=== PATIENT | female | born 1945 | race Caucasian/White ===

== ENCOUNTER 2017-12-28 07:42 | Inpatient (IN) | payer MEDICARE, MEDICAID ==
[2017-12-23 12:43] LABS: BASOPHILS % (AUTO) 0.7 % (0-1); EOSINOPHILS # (AUTO) 0.3 X10'3 (0-0.9); EOSINOPHILS % (AUTO) 4.3 % (0-6); LYMPHOCYTES # (AUTO) 1.9 X10'3 (1.1-4.8); LYMPHOCYTES % (AUTO) 26.9 % (21-51); MEAN CORPUSCULAR HEMOGLOBIN 29.4 PG (27.0-31.0); MEAN CORPUSCULAR HGB CONC 33.2 % (33.0-36.5); MEAN CORPUSCULAR VOLUME 88.4 FL (78-98); MEAN PLATELET VOLUME 7.5 FL (7.4-10.4); MONOCYTES # (AUTO) 0.6 X10'3 (0-0.9); MONOCYTES % (AUTO) 8.5 % (2-12); NEUTROPHILS # (AUTO) 4.3 X10'3 (1.8-7.7); NEUTROPHILS % (AUTO) 59.6 % (42-75); PRE OP HEMATOCRIT 34.1 % (35.0-45.0); PRE OP HEMOGLOBIN 11.3 g/dL (12.0-16.0); PRE OP PLATELET COUNT 280 X10'3 (140-440); RED BLOOD COUNT 3.85 X10'6 (4.20-5.60); RED CELL DISTRIBUTION WIDTH 14.6 % (11.5-14.5)
[2017-12-23 12:52] LABS: CLARITY,URINE CLEAR (Clear); COLOR,URINE YELLOW (Yellow); GLUCOSE, URINE NEGATIVE (Neg); KETONES,URINE NEGATIVE (Neg); LEUKOCYTE ESTERASE ,URINE NEGATIVE (Neg); NITRITES, URINE NEGATIVE (Neg); OCCULT BLOOD,URINE NEGATIVE (Neg); PH,URINE 6.5 (4.8-8.0); PROTEIN,URINE NEGATIVE (Neg); UROBILINOGEN,URINE 0.2 E.U/dL (0.2-1.0)
[2017-12-23 12:53] LABS: UA COLLECTION TYPE CLN CATCH MIDSTREAM
[2017-12-23 13:13] LABS: ALBUMIN 3.5 G/DL (3.4-5.0); ALBUMIN/GLOBULIN RATIO 0.9 (1.1-1.5); ALKALINE PHOSPHATASE 75 IU/L (46-116); BLOOD UREA NITROGEN 12 MG/DL (7-18); BUN/CREATININE RATIO 12.9 (6.6-38.0); CALCIUM 8.5 MG/DL (8.5-10.1); CHLORIDE 101 MMOL/L (99-107); CREATININE 0.93 MG/DL (0.40-0.90); PRE OP ALT 29 U/L (30-65); PRE OP ANION GAP 9 (8-16); PRE OP AST 18 U/L (10-37); PRE OP BILIRUB, TOTAL 0.3 MG/DL (0.0-1.0); PRE OP GLUCOSE 99 MG/DL (70-104); PRE OP POTASSIUM 4.5 MMOL/L (3.4-5.1); PRE OP SODIUM 138 MMOL/L (135-145); TOTAL CARBON DIOXIDE 28.2 MMOL/L (24-32); TOTAL PROTEIN 7.5 G/DL (6.4-8.2); eGFR 60 ML/MIN
[2017-12-28] VITALS (20 sets, daily range): BP systolic 104–150; BP diastolic 54–98
[~2017-12-28] VITALS: Ht 152.4 cm; Wt 85.9 kg
[~2017-12-28 07:42] MED LIST: AMLO5TAB PO; BACL10TA PO; FLUT1DIS4 INH; GABA-532 PO; HYDROcodone/acetaminophen 10/325mg tab PO PRN; HYDROmorphone 1 mg/ml syringe IV PRN; LEVA15HF4 IH; LORA0.5T PO; METO-395 PO; MONT10TA21 PO; OMEP-84 PO; SIMV10TA6 PO; VENL75TA90 PO; acetaminophen 325mg tablet PO ONE; bisacodyl 10mg suppository rectal RC PRN; cefazolin/dext.iso 2gm/100 ML IV ONE; celeCOXIB 100mg capsule PO ONE; famotidine 20mg tablet PO ONE; gabapentin 300mg capsule PO ONE; magnesium hydroxide 30ml (MOM) UD suspension PO PRN; metoclopramide 5 mg/ml inj IV ONE; oxyCODONE SR 10mg (sust. release) tab -2 tabs (20mg) PO ONE; ringers solution, lacted 1,000 ML IV SCH; tranexamic acid inj. 1,000 MG in normal saline 100ml IV soln 90 ML IV ONE; vancomycin inj 1,500 MG in normal saline 300ml IV soln IV ONE
[2017-12-28] MEDS ORDERED: ringers solution, lacted 1,000 ML IV SCH (07:53)
[2017-12-28] MEDS ORDERED: meperidine/PF 25mg/ml syringe IV PRN ×3 (07:55)
[2017-12-28] MEDS ORDERED: ondansetron/PF 4mg/2ml inj IV PRN ×2 (07:55→13:57)
[2017-12-28] MEDS ORDERED: morphine 4 MG/ML inj SYRINge IV PRN ×2 (07:55)
[2017-12-28] MEDS ORDERED: proCHLORperazine 10 MG/2 ml inj IV PRN (07:55)
[2017-12-28] MEDS ORDERED: epiNEPHrine 1 mg/ml inj ONE (09:09)
[2017-12-28] MEDS ORDERED: vancomycin 1,000mg inj ONE (09:09)
[2017-12-28] MEDS ORDERED: ROPIVAcaine 0.5% (5mg/ml) 30ml vial ONE (09:09)
[2017-12-28] MEDS ORDERED: cloNIDine hcl/PF 100mcg/ml inj ONE (09:09)
[2017-12-28] MEDS ORDERED: ketorolac trometh. 30mg/ml inj. ONE (09:09)
[2017-12-28] MEDS ORDERED: MIDAZolam 1mg/ml 10ml vial ONE (10:18)
[2017-12-28] MEDS ORDERED: fentaNYL/PF 50MCG/1 ML 2ML syringe ONE (10:19)
[2017-12-28] MEDS ORDERED: BUPIVAcaine/PF 7.5mg/ml (0.75%) 10ml vial ONE (10:21)
[2017-12-28] MEDS ORDERED: albuterol 2.5 MG/3 ML nebule NEB PRN (13:55)
[2017-12-28] MEDS ORDERED: diphenhydrAMINE 25mg capsule PO PRN ×2 (13:57→21:00)
[2017-12-28] MEDS: potassium cl 20mEq in 1/2 NS 1,000 ML IV SCH ×3 (15:02→23:02)
[2017-12-28] MEDS ORDERED: acetaminophen 325mg tablet PO PRN (16:00)
[2017-12-28] MEDS ORDERED: tranexamic acid inj. 860 MG in normal saline 100ml IV soln 100 ML IV ONE (17:00)
[2017-12-28] MEDS: atorvastatin 10mg tablet PO SCH (20:17)
[2017-12-28] MEDS: pantoprazole 40mg Tablet.DR PO SCH (20:17)
[2017-12-28] MEDS: gabapentin 300mg capsule PO SCH (20:17)
[2017-12-28] MEDS: ascorbic acid 500mg tablet PO SCH (20:17)
[2017-12-28] MEDS: LORazepam 0.5 MG tablet PO SCH (20:17)
[2017-12-28] MEDS: sennosides 8.6mg tablet PO SCH (20:17)
[2017-12-28] MEDS: baclofen 10mg tablet PO SCH (20:18)
[2017-12-28] MEDS: metoprolol succinate 25mg (24-HOUR) SR. Tablet PO SCH (20:18)
[2017-12-28] MEDS: cefazolin/dext.iso 2gm/100ml 100 ML IV SCH ×2 (20:18→23:55)
[2017-12-28] MEDS: HYDROcodone/acetaminophen 10/325mg tab PO PRN ×2 (20:19→23:52)
[2017-12-29 05:00] VITALS: BP 109/61
[2017-12-29] MEDS: HYDROcodone/acetaminophen 10/325mg tab PO PRN ×5 (05:30→22:01)
[2017-12-29] MEDS: potassium cl 20mEq in 1/2 NS 1,000 ML IV SCH ×2 (07:02→23:02)
[2017-12-29 07:17] VITALS: BP 129/53
[2017-12-29] MEDS: gabapentin 300mg capsule PO SCH ×3 (07:20→20:08)
[2017-12-29] MEDS: multivitamins, therapeutics tablet PO SCH (07:20)
[2017-12-29] MEDS: montelukast 10mg tablet PO SCH (07:21)
[2017-12-29] MEDS: ascorbic acid 500mg tablet PO SCH ×2 (07:21→20:08)
[2017-12-29] MEDS: amLODIPine 5mg tablet PO SCH (07:21)
[2017-12-29 07:26] LABS: BASOPHILS % (AUTO) 0.7 % (0-1); EOSINOPHILS # (AUTO) 0.3 X10'3 (0-0.9); EOSINOPHILS % (AUTO) 4.4 % (0-6); HEMATOCRIT 29.3 % (35.0-45.0); LYMPHOCYTES # (AUTO) 1.4 X10'3 (1.1-4.8); LYMPHOCYTES % (AUTO) 23.1 % (21-51); MEAN CORPUSCULAR HEMOGLOBIN 29.8 PG (27.0-31.0); MEAN CORPUSCULAR HGB CONC 33.9 % (33.0-36.5); MEAN CORPUSCULAR VOLUME 87.9 FL (78-98); MEAN PLATELET VOLUME 7.4 FL (7.4-10.4); MONOCYTES # (AUTO) 0.5 X10'3 (0-0.9); MONOCYTES % (AUTO) 8.7 % (2-12); NEUTROPHILS # (AUTO) 3.9 X10'3 (1.8-7.7); NEUTROPHILS % (AUTO) 63.1 % (42-75); PLATELET COUNT 228 X10'3 (140-440); RED BLOOD COUNT 3.34 X10'6 (4.20-5.60); RED CELL DISTRIBUTION WIDTH 14.7 % (11.5-14.5); WHITE BLOOD COUNT 6.2 X10'3 (4.5-11.0)
[2017-12-29 07:50] LABS: ANION GAP 8 (8-16); CHLORIDE 104 MMOL/L (99-107); POTASSIUM 4.3 MMOL/L (3.5-5.1); SODIUM 137 MMOL/L (135-145); TOTAL CARBON DIOXIDE 25.1 MMOL/L (24-32)
[2017-12-29] MEDS: aspirin 325mg tablet PO SCH ×2 (08:30→09:30)
[2017-12-29 10:00] VITALS: BP 132/51
[2017-12-29] MEDS: albuterol 2.5 MG/3 ML nebule NEB SCH ×3 (11:57→19:53)
[2017-12-29] MEDS: BUDESONIDE 0.25 MG/2 ML AMPUL.NEB IH SCH ×2 (11:58→19:53)
[2017-12-29 14:00] VITALS: BP 145/79
[2017-12-29 18:00] VITALS: BP 149/32
[2017-12-29] MEDS: metoprolol succinate 25mg (24-HOUR) SR. Tablet PO SCH (20:08)
[2017-12-29] MEDS: atorvastatin 10mg tablet PO SCH (20:08)
[2017-12-29] MEDS: pantoprazole 40mg Tablet.DR PO SCH (20:09)
[2017-12-29] MEDS: LORazepam 0.5 MG tablet PO SCH (20:09)
[2017-12-29] MEDS: sennosides 8.6mg tablet PO SCH (20:09)
[2017-12-29] MEDS: baclofen 10mg tablet PO SCH (20:09)
[2017-12-29 22:00] VITALS: BP 112/51
[2017-12-30] MEDS: HYDROcodone/acetaminophen 10/325mg tab PO PRN ×6 (02:04→23:08)
[2017-12-30 06:00] VITALS: BP 110/45
[2017-12-30 06:57] LABS: BASOPHILS % (AUTO) 0.1 % (0-1); EOSINOPHILS # (AUTO) 0.3 X10'3 (0-0.9); EOSINOPHILS % (AUTO) 3.1 % (0-6); HEMATOCRIT 32.3 % (35.0-45.0); HEMOGLOBIN 10.7 g/dl (12.0-16.0); LYMPHOCYTES # (AUTO) 2.3 X10'3 (1.1-4.8); LYMPHOCYTES % (AUTO) 22.3 % (21-51); MEAN CORPUSCULAR HEMOGLOBIN 29.6 PG (27.0-31.0); MEAN CORPUSCULAR HGB CONC 33.2 % (33.0-36.5); MEAN CORPUSCULAR VOLUME 89.2 FL (78-98); MEAN PLATELET VOLUME 7.8 FL (7.4-10.4); MONOCYTES # (AUTO) 1.1 X10'3 (0-0.9); MONOCYTES % (AUTO) 10.9 % (2-12); NEUTROPHILS # (AUTO) 6.6 X10'3 (1.8-7.7); NEUTROPHILS % (AUTO) 63.6 % (42-75); PLATELET COUNT 258 X10'3 (140-440); RED BLOOD COUNT 3.62 X10'6 (4.20-5.60); RED CELL DISTRIBUTION WIDTH 15.1 % (11.5-14.5); WHITE BLOOD COUNT 10.3 X10'3 (4.5-11.0)
[2017-12-30 07:32] VITALS: BP 124/49
[2017-12-30] MEDS: montelukast 10mg tablet PO SCH (07:35)
[2017-12-30] MEDS: gabapentin 300mg capsule PO SCH ×3 (07:35→20:06)
[2017-12-30] MEDS: multivitamins, therapeutics tablet PO SCH (07:35)
[2017-12-30] MEDS: ascorbic acid 500mg tablet PO SCH ×2 (07:35→20:06)
[2017-12-30] MEDS: amLODIPine 5mg tablet PO SCH (07:35)
[2017-12-30] MEDS: aspirin 325mg tablet PO SCH (07:37)
[2017-12-30] MEDS: albuterol 2.5 MG/3 ML nebule NEB SCH ×4 (07:40→19:42)
[2017-12-30] MEDS: BUDESONIDE 0.25 MG/2 ML AMPUL.NEB IH SCH ×2 (07:45→19:42)
[2017-12-30] MEDS ORDERED: ASPI-1 PO (08:26)
[2017-12-30 10:00] VITALS: BP 118/45
[2017-12-30 18:00] VITALS: BP 165/54
[2017-12-30 20:01] VITALS: BP 157/59
[2017-12-30] MEDS: atorvastatin 10mg tablet PO SCH (20:06)
[2017-12-30] MEDS: baclofen 10mg tablet PO SCH (20:06)
[2017-12-30] MEDS: pantoprazole 40mg Tablet.DR PO SCH (20:06)
[2017-12-30] MEDS: metoprolol succinate 25mg (24-HOUR) SR. Tablet PO SCH (20:06)
[2017-12-30] MEDS: LORazepam 0.5 MG tablet PO SCH (20:06)
[2017-12-30] MEDS: sennosides 8.6mg tablet PO SCH (20:07)
[2017-12-30 22:00] VITALS: BP 163/58
[2017-12-31] MEDS: HYDROcodone/acetaminophen 10/325mg tab PO PRN ×2 (05:27→10:48)
[2017-12-31 06:00] VITALS: BP 143/50
[2017-12-31] MEDS: albuterol 2.5 MG/3 ML nebule NEB SCH ×2 (07:00→10:12)
[2017-12-31] MEDS: aspirin 325mg tablet PO SCH (07:09)
[2017-12-31] MEDS: gabapentin 300mg capsule PO SCH (07:09)
[2017-12-31] MEDS: multivitamins, therapeutics tablet PO SCH (07:09)
[2017-12-31] MEDS: ascorbic acid 500mg tablet PO SCH (07:09)
[2017-12-31] MEDS: amLODIPine 5mg tablet PO SCH (07:09)
[2017-12-31] MEDS: montelukast 10mg tablet PO SCH (07:09)
[2017-12-31] MEDS: BUDESONIDE 0.25 MG/2 ML AMPUL.NEB IH SCH (07:27)
[2017-12-31 07:35] LABS: BASOPHILS % (AUTO) 0.3 % (0-1); EOSINOPHILS # (AUTO) 0.4 X10'3 (0-0.9); HEMATOCRIT 29.2 % (35.0-45.0); HEMOGLOBIN 9.8 g/dl (12.0-16.0); LYMPHOCYTES # (AUTO) 1.3 X10'3 (1.1-4.8); LYMPHOCYTES % (AUTO) 17.7 % (21-51); MEAN CORPUSCULAR HEMOGLOBIN 29.6 PG (27.0-31.0); MEAN CORPUSCULAR HGB CONC 33.4 % (33.0-36.5); MEAN CORPUSCULAR VOLUME 88.6 FL (78-98); MEAN PLATELET VOLUME 7.5 FL (7.4-10.4); MONOCYTES # (AUTO) 0.8 X10'3 (0-0.9); MONOCYTES % (AUTO) 11.2 % (2-12); NEUTROPHILS # (AUTO) 4.9 X10'3 (1.8-7.7); NEUTROPHILS % (AUTO) 65.8 % (42-75); PLATELET COUNT 212 X10'3 (140-440); RED CELL DISTRIBUTION WIDTH 14.5 % (11.5-14.5); WHITE BLOOD COUNT 7.5 X10'3 (4.5-11.0)
== END 2017-12-31 11:50 | disposition home or self-care (01) | DRG 470 ==
LOC: PAS IN 07:42 → EDSTATUS 10:45 → ORTHO 4S 13:30
PROVIDERS: ADMIT Orthopaedic Surgery; ATTEND Orthopaedic Surgery
PROC: 0SRB0JZ Replacement of Left Hip Joint with Synthetic Substitute, Open Approach (ICD-10-PCS; principal; 2017-12-28 10:10)
DX: M16.12 Unilateral primary osteoarthritis, left hip (principal); D62 Acute posthemorrhagic anemia; G89.29 Other chronic pain; M25.552 Pain in left hip; F41.8 Other specified anxiety disorders; J45.909 Unspecified asthma, uncomplicated; E78.5 Hyperlipidemia, unspecified; K21.9 Gastro-esophageal reflux disease without esophagitis; I10 Essential (primary) hypertension; Z87.891 Personal history of nicotine dependence
CPT/HCPCS: 36415; 71045; 72170; 80051; 80053; 81003; 85025; 85610; 85730; 86885; 86900; 86901; 87070; 94640; 94760; 97110; 97116; 97161; 97530; A4615; A7000; C1758; C1776; G0378; J0171; J0690; J0735; J1885; J2250; J2765; J2795; J3010; J3370; J3490; J7030; J7120